=== PATIENT | male | born 1985 | race Caucasian/White ===

== ENCOUNTER 2023-03-06 16:42 | Emergency (ER) | payer BC ==
[~2023-03-06] VITALS: Ht 180.3 cm; Wt 91.2 kg
--- NOTE | 2023-03-06 16:55 | NUR ---
C/P SUBSTERNAL CP THIS MORNING AFTER "WORKING OUT"
--- NOTE | 2023-03-06 17:15 | NUR ---
ESTABLISHED IV LINE LEFT AC 20 G ,
--- NOTE | 2023-03-06 17:20 | NUR ---
BLOOD SAMPLE OBTAINED SENT TO LAB
[2023-03-06] MEDS ORDERED: ONDANSETRON HCL/PF 4 MG/2 ML VIAL ONE (17:59)
[2023-03-06] MEDS ORDERED: HYDROMORPHONE INJ 2 MG/ML DISP.SYRIN ONE (17:59)
[2023-03-06] MEDS ORDERED: HYDROMORPHONE INJ 2 MG/ML DISP.SYRIN IV ONE (18:00)
[2023-03-06] MEDS ORDERED: ONDANSETRON HCL/PF 4 MG/2 ML VIAL IVP ONE (18:00)
[2023-03-06] MEDS ORDERED: IV NS 0.9% 1,000 ML BAG IV ONE (18:00)
[2023-03-06 18:21] LABS: BASOPHILS % (AUTO) 0.3 % (0.0-2.0); EOSINOPHILS % (AUTO) 0.3 % (0.0-6.0); HEMATOCRIT 43 % (39-51); HEMOGLOBIN 14.3 g/dL (13.5-17.5); LYMPHOCYTES % (AUTO) 6.2 % (20.0-44.0); MEAN CORPUSCULAR HGB CONC 33 g/dl (31.0-36.0); MEAN CORPUSCULAR VOLUME 88 fL (80-96); MONOCYTES # (AUTO) 1.4 K/uL (0.1-1.30); MONOCYTES % (AUTO) 8.9 % (2.0-12.0); NEUTROPHILS # (AUTO) 13.1 K/uL (1.8-8.9); NEUTROPHILS % (AUTO) 84.3 % (43.0-81.0); PLATELET COUNT (AUTO) 199 K/uL (150-450); RED BLOOD CELL COUNT(AUTO) 4.91 MIL/uL (4.5-6.0); WHITE BLOOD COUNT (AUTO) 15.5 K/uL (4.3-11.0)
[2023-03-06 18:29] LABS: CALCIUM, SERUM 9.4 mg/dL (8.5-10.1); CARBON DIOXIDE 26 mmol/L (21-32); CHLORIDE 103 mmol/L (98-107); GLUCOSE 117 mg/dL (74-106); POTASSIUM 3.9 mmol/L (3.5-5.1); SODIUM SERUM 140 mmol/L (136-145); UREA NITROGEN, BLOOD 15 mg/dL (7-18)
--- NOTE | 2023-03-06 18:47 | NUR ---
REPEAT EKG ORDERED
--- NOTE | 2023-03-06 18:47 | NUR ---
MOVE SHEET SUBMITTED.
--- NOTE | 2023-03-06 18:47 | NUR ---
TROPONIN [id number]. MADE AWARE
[2023-03-06] MEDS ORDERED: ASPIRIN 325 MG TABLET ONE (18:50)
[2023-03-06] MEDS ORDERED: ASPIRIN 325 MG TABLET PO ONE (19:00)
--- NOTE | 2023-03-06 19:16 | NUR ---
COVID SWAB COLLECTED AND SENT TO LAB.
--- NOTE | 2023-03-06 19:48 | NUR ---
UPDATED NAM GLORIA [phone]
--- NOTE | 2023-03-06 19:48 | NUR ---
TRANSFERRED FROM BED 14 TO BED 1
[2023-03-06] MEDS ORDERED: IV NS 0.9% 1,000 ML IV ONE (20:00)
[2023-03-06] MEDS ORDERED: IV NS 0.9% 250 ML IV ONE (20:15)
[2023-03-06] MEDS ORDERED: IOHEXOL-350 100 ML VIAL IV ONE (20:15)
--- NOTE | 2023-03-06 20:19 | NUR ---
PT TAKEN TO CT VIA [facility]
--- NOTE | 2023-03-06 20:32 | NUR ---
PT RETURNED TO ER BED [address]
--- NOTE | 2023-03-06 20:50 | NUR ---
CALLED [facility] AND ASKED FOR STAT READ OF CHEST CTA
--- NOTE | 2023-03-06 20:55 | NUR ---
REPEAT EKG DONE
[2023-03-06] MEDS ORDERED: ACETAMINOPHEN 325 MG TABLET PO PRN (21:00)
[2023-03-06] MEDS ORDERED: ONDANSETRON HCL/PF 4 MG/2 ML VIAL IVP PRN (21:00)
[2023-03-06] MEDS ORDERED: HEPARIN INFUSION/D5W 500 ML IV ONE (21:00)
[2023-03-06] MEDS ORDERED: MORPHINE SULFATE INJ 2 MG/ML DISP.SYRIN IV PRN (21:00)
[2023-03-06] MEDS ORDERED: IV NS 0.9% 1,000 ML IV SCH (21:00)
[2023-03-06] MEDS ORDERED: HEPARIN SODIUM, PORCINE 5000 UNITS/1 ML VIAL IV ONE (21:00)
--- NOTE | 2023-03-06 21:06 | NUR ---
CALLED DR ALMARAZ SPEAKING TO DR SEVILLA
--- NOTE | 2023-03-06 21:09 | NUR ---
SEEN BY DR AHUMADA AT BEDSIDE
--- NOTE | 2023-03-06 21:27 | NUR ---
DR ROEL CALDERON SPEAKING TO MD OSP[facility]
--- NOTE | 2023-03-06 21:30 | NUR ---
CALLED FOR STAT ECHO
--- NOTE | 2023-03-06 21:38 | NUR ---
CALLED 911 FOR [address]I [phone]
[2023-03-06] MEDS ORDERED: MORPHINE SULFATE INJ 2 MG/ML DISP.SYRIN ONE (21:46)
--- NOTE | 2023-03-06 21:52 | NUR ---
911 dispatchers here and pt transfered to [facility]
[2023-03-06 21:58] VITALS: BP 147/105
== END 2023-03-06 22:01 ==
LOC: ER 16:50
DX: I21.9 Acute myocardial infarction, unspecified (principal); I24.9 Acute ischemic heart disease, unspecified; Z60.2 Problems related to living alone; Z20.822 Contact with and (suspected) exposure to COVID-19
CPT/HCPCS: 99291; 96374; 71275; 71045; 96361; 96375; 87426; 93005 ×3; 85025; 80048; 82550; 83605; 85378; 36415; 84484 ×2; 85730; 86850; 82553; 80307; J1644; J1170; J2405; J7030; J7050; J2270; Q9967; C9803